=== PATIENT | female | born 1970 | race American Indian/Alaskan Native ===

== ENCOUNTER 2019-12-23 13:18 | Emergency (ER) | payer SELFPAY ==
[2019-12-23 14:44] VITALS: BP 127/77
== END 2019-12-23 15:57 ==
LOC: ED 13:18
DX: N89.8 Other specified noninflammatory disorders of vagina (principal); Z53.21 Procedure and treatment not carried out due to patient leaving prior to being seen by health care provider

== ENCOUNTER 2019-12-24 09:02 | Emergency (ER) | payer SELFPAY ==
[2019-12-24 09:20] VITALS: BP 118/71
[2019-12-24 10:57] LABS: Bacteria,Urine 1+ /HPF (Negative); Bilirubin,Urine NEG (Negative); Blood,Urine MOD (Negative); Color,Urine Straw (Yellow); Mucus,Urine FEW /HPF; Protein,Urine <15 mg/dL mg/dL (Negative); Urobilinogen,Urine < 2.0 mg/dL (<2.0)
[2019-12-24 10:58] LABS: HCG Qualitative,Urine Negative (Negative)
--- NOTE | 2019-12-24 11:59 | Emergency Department Report ---
Chief Complaint: Urogenital-Female Stated Complaint: DISCHARGE, BURNING Time Seen by Provider: 12/24/19 10:10 - HPI History of Present Illness: This 49-year-old female presents the ED complaining of mild vaginal discharge with dysuria and irritation x4 days ago. Patient states that she started experiencing some burning with urination on afternoon. Patient denies fever/chills/nausea vomiting abdominal pain chest pain or any other problems - ROS Review of Systems: As noted in HPI - Exam Vital Signs: Vital Signs 12/24/19 09:16 Temperature 98.2 F Pulse Rate 84 Respiratory 16 Rate Blood Pressure 118/71 O2 Sat by Pulse 97 Oximetry Physical Exam: GENERAL: Alert and oriented x3, no apparent distress, Normal Gait, atraumatic. ABDOMEN: No organomegaly was noted,Positive bowel sounds, soft, and non- distended. . Nontender to palpation on all Quadrants, NO CVA tenderness. MSE screening note: Focused history and physical exam performed. Due to findings the following was ordered: ED Medical Decision Making - Lab Data Laboratory Last Values Urine Color Straw (Yellow) 12/24/19 10:16 Urine Turbidity Slightly-cloudy (Clear) 12/24/19 10:16 Urine pH 6.0 (5.0-7.0) 12/24/19 10:16 Ur Specific [place] 1.011 (1.003-1.030) 12/24/19 10:16 Urine Protein <15 mg/dl mg/dL (Negative) 12/24/19 10:16 Urine Glucose (UA) Neg mg/dL (Negative) 12/24/19 10:16 Urine Ketones Neg mg/dL (Negative) 12/24/19 10:16 Urine Blood Mod (Negative) 12/24/19 10:16 Urine Nitrite Neg (Negative) 12/24/19 10:16 Urine Bilirubin Neg (Negative) 12/24/19 10:16 Urine Urobilinogen < 2.0 mg/dL (<2.0) 12/24/19 10:16 Ur Leukocyte Esterase Lg (Negative) 12/24/19 10:16 Urine WBC (Auto) 2.0 /HPF (0.0-6.0) 12/24/19 10:16 Urine RBC (Auto) 9.0 /HPF (0.0-6.0) 12/24/19 10:16 U Epithel Cells (Auto) 7.0 /HPF (0-13.0) 12/24/19 10:16 Urine Bacteria (Auto) 1+ /HPF (Negative) 12/24/19 10:16 Urine Mucus Few /HPF 12/24/19 10:16 Urine Yeast (Budding) 1+ /HPF 12/24/19 10:16 Urine HCG, Qual Negative (Negative) 12/24/19 10:16 - Medical Decision Making 49-year-old female presents with dysuria secondary to UTI Urinalysis was obtained prior to my evaluation. Urinalysis does show slight infection. After the urinalysis was resulted I went into patient's room patient was no longer in the room. Patient had left the ED department. ED Disposition for MSE Clinical Impression: Dysuria Disposition: MED SCREENING EXAM-LEFT Is pt being admited?: No Does the pt Need Aspirin: No Condition: Stable Referrals: PRIMARY CARE, [Primary Care Provider] - 3-5 Days
== END 2019-12-24 12:12 | disposition left against medical advice (07) ==
LOC: ED 09:02
DX: R30.0 Dysuria (principal); N89.8 Other specified noninflammatory disorders of vagina
CPT/HCPCS: 81001; 81025; 99282

== ENCOUNTER 2020-09-18 08:32 | Day surgery (SDC) | payer OTHER ==
--- NOTE | 2020-09-16 09:20 | History and Physical Report ---
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 Denies current infection. No changes to H&P on day of surgery. Past History Past Medical History: no pertinent history Past Surgical History: other (liposuction) [employer] History: herpes Family/Genetic History: diabetes Social history: no significant social history - Obstetrical History : 6 Para: 4 Hx # Term Pregnancies: 4 Spontaneous Abortions: 2 Number of Living Children: 4 Medications and Allergies Allergies Allergy/AdvReac Type Severity Reaction Status Date / Time No Known Allergies Allergy Verified 09/15/20 08:37 Home Medications Medication Instructions Recorded Confirmed Last Taken Type No Known Home Medications [No 09/15/20 09/15/20 Unknown History Reported Home Medications] Active Meds: Active Medications Cefazolin Sodium (Ancef/Sterile Water 2 Gm/20 Ml) 2 gm in 20 mls @ 80 mls/hr IV PREOP NR; Protocol Review of Systems All systems: negative (expect HPI) - Physical Exam Cardiovascular: Regular rate Lungs: Positive: Clear to auscultation Abdomen: Positive: normal appearance, normal bowel sounds Genitourinary (Female): Positive: other (3 x 4 cm L Bartholin's cyst) Results Result Diagrams: 09/18/20 09:45 All other labs normal. Assessment and Plan - Patient Problems (1) Bartholin's gland cyst Current Visit: No Status: Acute Plan to address problem: To OR for marsupilization of Left Bartholin's gland cyst. No evidence of infection today. --Consented in the chart --Questions solicited and answered
[~2020-09-18 08:32] MED LIST: ACETAMINOPHEN 500 MG TAB PO SCH; LACTATED RINGERS 1,000 ML IV SCH; MIDAZOLAM 2 MG/2 ML INJ IV NR; ceFAZolin/Water 2 GM/20 ML 2 GM/20 ML SYRINGE IV NR
[2020-09-18] MEDS ORDERED: ONDANSETRON 4 MG/2 ML INJ IV PRN (09:09)
[2020-09-18] MEDS ORDERED: HYDROmorphone 1 MG/1 ML INJ IV PRN (09:09)
--- NOTE | 2020-09-18 09:21 | Anesthesia Day of Surgery ---
Anesthesia Day of Surgery - Day of Surgery Patient Examined: Yes Patient H&P Reviewed: Yes Patient is NPO: Yes
--- NOTE | 2020-09-18 09:21 | Anesthesia Consultation ---
Anesthesia Consult and Med Hx Date of service: 09/18/20 - Airway Anesthetic Teeth Evaluation: Poor (evidence of tooth decay top incisors), Crowns ROM Head & Neck: Adequate Mental/Hyoid Distance: Adequate Mallampati Class: Class III Intubation Access Assessment: Possibly Difficult - Pulmonary Exam CTA: Yes - Cardiac Exam Cardiac Exam: RRR - Pre-Operative Health Status ASA Pre-Surgery Classification: ASA1 Proposed Anesthetic Plan: General - Pulmonary Hx Smoking: No Hx Respiratory Symptoms: No - Cardiovascular System Hx Hypertension: No - Central Nervous System CVA: No - Endocrine Hx Renal Disease: No Hx Liver Disease: No Hx Insulin Dependent Diabetes: No Hx Non-Insulin Dependent Diabetes: No Hx Thyroid Disease: No - Other Systems Hx Obesity: No
[2020-09-18 10:09] LABS: Hematocrit 37.3 % (30.3-42.9); Hemoglobin 12.2 gm/dl (10.1-14.3); Mean Corpuscular HGB Conc 33 % (30-34); Mean Corpuscular Volume 83 fl (79-97); Platelet Count 222 K/mm3 (140-440); Red Cell Distribution Width 14.3 % (13.2-15.2)
[2020-09-18] MEDS ORDERED: ceFAZolin/STERILE WATER 2 GM/20 ML SYRINGE IV NR (10:21)
[2020-09-18] MEDS ORDERED: propofoL 200 MG/20 ML VIAL IV ONE (10:31)
[2020-09-18] MEDS ORDERED: fentaNYL 100 MCG/2 ML INJ ONE (10:31)
[2020-09-18 10:38] LABS: Alanine Aminotransferase 6 units/L (7-56); Albumin 3.9 g/dL (3.9-5); BUN/Creatinine Ratio 24; Blood Urea Nitrogen 12 mg/dL (7-17); Calcium 8.7 mg/dL (8.4-10.2); Hemolysis Index 1
[2020-09-18] MEDS ORDERED: KETOROLAC 30 MG/1 ML INJ ONE (10:47)
[2020-09-18] MEDS ORDERED: dexAMETHasone 20 MG/5 ML VIAL ONE (10:47)
[2020-09-18] MEDS ORDERED: ONDANSETRON 4 MG/2 ML INJ ONE (10:47)
[2020-09-18] MEDS ORDERED: ceFAZolin/Water 2 GM/20 ML 2 GM/20 ML SYRINGE IV NR (11:00)
[2020-09-18] MEDS ORDERED: BUPIVACAINE/PF (0.25%) 2.5 MG/ML 30 ML VIAL INFILTRATI ONE ×2 (11:03→11:46)
[2020-09-18] MEDS ORDERED: FERRIC SUBSULFATE TOPICAL SOLN 8 ML TP ONE ×2 (11:19→11:46)
[2020-09-18] MEDS ORDERED: oxyCODONE /ACETAMINOPHEN 5-325MG TAB PO PRN (11:51)
[2020-09-18] MEDS ORDERED: IBUPROFEN 600 MG TAB PO PRN (11:51)
--- NOTE | 2020-09-18 11:55 | Procedure Note ---
Date of procedure: 09/18/20 Pre-op diagnosis: L Bartholin's Gland cyst Post-op diagnosis: same Procedure: Preoperative diagnosis: 1. Left Bartholin's gland cyst Postoperative diagnosis: 1. Same Operation performed: 1. Examined under anesthesia 2. Left Bartholin's gland cyst marsupialization Surgeon: Amina Landry Anesthesia: General EBL: 5 UOP: 50 IVF 1000 Pathology specimens: 1. Cyst fluid 2. Cyst wall Complications: none Disposition and condition: To the PACU in stable condition then discharged home Findings: 1. 4 x 3 cm fluctuant, nonerythematous left Bartholin's gland cyst 2. 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 She desired surgical management. The procedure risk benefits, indications and alternatives reviewed patient. Description of operation: After informed consent, the patient was taken to the OR and placed in Montez stirrups after general anesthesia was administered. An exam under anesthesia was performed with the findings noted above. The vagina was prepped and draped in the usual sterile fashion. A catheterization of the bladder was performed. Attention was directed to the left Bartholin's gland cyst. Five cc's of 25% Marcaine plain was injected into the cyst wall interface. A 1.5 cm incision was created using the 11 blade with expression of copious amounts of brownish, [id number] fluid. The cyst fluid was sent to pathology and a small portion of the cyst wall was also sent to pathology for examination. The capsule was irrigated copiously with saline followed by Betadine solution. The cyst was noted to be completely depressed without any evidence of persistent cyst and/or abscess. Next, a marsupialization was per formed using 3-0 Vicryl on SH needle completing circumferential [id number] sutures attaching the outside vaginal wall to the cyst wall capsule in order to create a permanent gland opening. Hemostasis was obtained with pressure and Monsel solution. Patient tolerated the procedure well and was taken to recovery room in good condition. Anesthesia: GETA Surgeon: AMINA LANDRY JR Estimated blood loss: minimal IV fluids: 1,000 Urine output: 50 Pathology: list (1. cyst fluid, 2. cyst wall) Specimen disposition: to lab Condition: stable Disposition: same day
[2020-09-18 12:33] VITALS: BP 146/76
--- NOTE | 2020-09-18 13:06 | Post Anesthesia Evaluation ---
- Post Anesthesia Evaluation Patient Participated: Yes Airway Patent: Yes Stable Respiratory Function: Yes Nausea/Vomiting: No Temp > 96.8F: Yes Pain Manageable: Yes Adequeate Hydration: Yes Anesthesia Complications: No
== END 2020-09-18 08:33 | disposition home or self-care (01) ==
LOC: OR 08:32
PROVIDERS: ATTEND Obstetrics & Gynecology
DX: N75.0 Cyst of Bartholin's gland (principal); Z98.890 Other specified postprocedural states
CPT/HCPCS: 36415; 56440; 80053; 81025; 85027; 87075; 87116; 88304; J1100; J1885; J2250; J2405; J2704; J3010; J7120